=== PATIENT | female | born 1965 | race Caucasian/White ===

== ENCOUNTER → 2017-02-19 | Outpatient (CLI) | payer OTHER ==
--- NOTE | 2017-02-19 10:53 | US ---
EXAMINATION TYPE: US pelvis complete transvag DATE OF EXAM: 02/19/2017 9:14 AM COMPARISON: NONE CLINICAL HISTORY: Pel Pain R10, Ovarian cysts N83.20. TECHNIQUE: Transvaginal (TV) and Transabdominal (TA) Date of LMP: unknown, about 2 months ago. EXAM MEASUREMENTS: Uterus: 10.8 x 5.2 x 5.5 cm Endometrial Stripe: 0.7 cm Right Ovary: not visualized Left Ovary: not visualized 1. Uterus: Anteverted no masses identified. 2. Endometrium: wnl 3. Right Ovary: not visualized 4. Left Ovary: not visualized 5. Bilateral Adnexa: wnl 6. Posterior cul-de-sac: no free fluid Unable to image ovaries due to overlying bowel, technically challenging due to patient body habitus IMPRESSION: Limited evaluation of the ovaries. No adnexal masses At this time.
== END | disposition home or self-care (01) ==
LOC: RADUSWWP 08:50
PROVIDERS: ATTEND Family Medicine
DX: R10.2 Pelvic and perineal pain (principal)
CPT/HCPCS: 76830; 76856

== ENCOUNTER 2017-05-21 08:14 | Day surgery (SDC) | payer OTHER ==
[2017-05-19 15:15] VITALS: BMI 39.7
[~2017-05-21 08:14] MED LIST: LACTATED RINGERS 1,000 ML IV SCH; LIDOCAINE 1% 20 ML VIAL (10MG/ML) FOR IV START INTRADERMA PRN
[2017-05-21 09:00] VITALS: TEMP 98.3
[2017-05-21] MEDS ORDERED: PROPOFOL 10 MG/ML 20 ML VIAL IV ONE (09:50)
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
--- NOTE | 2017-05-21 10:11 | P.OP ---
Date of Procedure: 05/21/17 Preoperative Diagnosis: GI bleed Postoperative Diagnosis: Mild diverticulosis Transverse colon polyp Procedure(s) Performed: Colonoscopy Implants: Anesthesia: MAC Surgeon: Aiden Ahumada Pathology: other (Transverse colon polyp) Condition: stable Disposition: PACU Indications for Procedure: Operative Findings: Description of Procedure: The patient's placed on the endoscopy table lateral position. She received IV sedation. Digital rectal exam was performed which revealed no abnormalities. The flexible colonoscope was then placed patient anus passed throughout the entire colon. The ileocecal valve was visualized. The cecum and ascending colon appeared normal. In the proximal transverse colon was small sessile polyp. This removed the forcep. Scope was then withdrawn. The remainder of the transverse colon, descending colon appeared normal. In the sigmoid colon there was a few scattered diverticula. Scope was then brought back the rectum and this appeared normal. Scope was withdrawn for patient.
[2017-05-21 10:25] VITALS: BP 109/78; PULSE 77; RESP 18
== END 2017-05-21 10:41 | disposition home or self-care (01) ==
LOC: ORWHC2ENDO 08:14
PROVIDERS: ATTEND Surgery
DX: D12.3 Benign neoplasm of transverse colon (principal); K57.30 Diverticulosis of large intestine without perforation or abscess without bleeding; I10 Essential (primary) hypertension; M19.90 Unspecified osteoarthritis, unspecified site; Z87.891 Personal history of nicotine dependence; K59.03 Drug induced constipation; F39 Unspecified mood [affective] disorder; Z79.891 Long term (current) use of opiate analgesic; Z79.899 Other long term (current) drug therapy; Z88.0 Allergy status to penicillin; Z91.040 Latex allergy status; Z91.09 Other allergy status, other than to drugs and biological substances
CPT/HCPCS: 81025; 88305; 45380; J2704

== ENCOUNTER 2017-08-20 10:32 | Day surgery (SDC) | payer OTHER ==
[2017-08-19 11:39] VITALS: BMI 39.2
[2017-08-20 11:20] VITALS: RESP 16; TEMP 97
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
[2017-08-20] MEDS ORDERED: PROPOFOL 10 MG/ML 20 ML VIAL IV ONE (12:06)
--- NOTE | 2017-08-20 12:24 | P.OP ---
Date of Procedure: 08/20/17 Preoperative Diagnosis: GI bleed Postoperative Diagnosis: Right colon polyp Internal and external hemorrhoids Procedure(s) Performed: Colonoscopy Anesthesia: MAC Surgeon: Aiden Ahumada Pathology: other (Right colon polyp) Condition: stable Disposition: PACU Description of Procedure: Patient's placed on the endoscopy table lateral position. She received IV sedation. Digital rectal exam was performed which revealed internal and external hemorrhoids. The patient had some leading external hemorrhoids. The flexible colonoscope was then placed patient anus passed rotator entire colon. The ileocecal valve was visualized. Cecum appeared normal. In the right shoulder was a small sessile polyp was removed the forcep. Scope was then brought back further and the remainder the ascending colon, transient: And descending colon appeared normal. Scope was then brought back the rectum and this appeared normal. Scope was then brought up through the anus and there were internal and large external hemorrhoids noted. Scope was withdrawn for patient. Patient was sent to recovery in stable condition.
[2017-08-20 12:52] VITALS: BP 134/96; PULSE 83
== END 2017-08-20 13:05 | disposition home or self-care (01) ==
LOC: ORWHC2ENDO 10:32
PROVIDERS: ATTEND Surgery
DX: K92.2 Gastrointestinal hemorrhage, unspecified (principal); D12.2 Benign neoplasm of ascending colon; I10 Essential (primary) hypertension; K64.4 Residual hemorrhoidal skin tags; K64.8 Other hemorrhoids; M19.90 Unspecified osteoarthritis, unspecified site; Z87.891 Personal history of nicotine dependence; Z88.0 Allergy status to penicillin; Z79.899 Other long term (current) drug therapy; Z91.040 Latex allergy status; M54.2 Cervicalgia
CPT/HCPCS: 81025; 88305; 45380; J2704

== ENCOUNTER → 2018-10-06 | Outpatient (CLI) | payer MEDICARE, OTHER ==
--- NOTE | 2018-10-06 17:28 | US ---
EXAMINATION TYPE: US venous doppler duplex LE RT DATE OF EXAM: 10/06/2018 5:02 PM COMPARISON: NONE CLINICAL HISTORY: Rt Foot. Pain and Swelling. SIDE PERFORMED: rt TECHNIQUE: The lower extremity deep venous system is examined utilizing real time linear array sonog carisa with graded compression, doppler sonography and color-flow sonography. VESSELS IMAGED: External Iliac Vein (EIV) Common Femoral Vein Deep Femoral Vein Greater Saphenous Vein * Femoral Vein Popliteal Vein Small Saphenous Vein * FINDINGS: Grayscale, color doppler, spectral doppler imaging performed of the deep veins of the lowe r extremities. There is normal flow, compressibility, vascular waveforms. IMPRESSION: NEGATIVE FOR DVT RIGHT LOWER EXTREMITY.
== END ==
LOC: RADUSWWP 16:27
PROVIDERS: ATTEND Family Medicine
DX: I82.409 Acute embolism and thrombosis of unspecified deep veins of unspecified lower extremity (principal); M79.671 Pain in right foot
CPT/HCPCS: 84439; 84443